=== PATIENT | male | born 1970 | race Hispanic/Latino ===

== ENCOUNTER → 2021-10-18 | Outpatient (CLI) | payer BC ==
[~2021-10-18] MED LIST: GEMFIBROZIL600 MG PO; MULTIVITAMIN1 EACH PO
== END ==
LOC: OR 06:35 → RAD 06:35 → EDSTATUS 07:30
PROVIDERS: ATTEND Internal Medicine Gastroenterology
DX: Z01.810 Encounter for preprocedural cardiovascular examination (principal); Z12.11 Encounter for screening for malignant neoplasm of colon; Z20.822 Contact with and (suspected) exposure to COVID-19; Z53.8 Procedure and treatment not carried out for other reasons
CPT/HCPCS: 93005; U0002

== ENCOUNTER → 2021-10-20 | Day surgery (SDC) | payer BC ==
[~2021-10-20] MED LIST changes: +FENTANYL CITRATE/PF 100MCG/2 ML INJ ONE; +HYOSCYAMINE SULFATE 0.5 MG/ML INJ ONE; +LIDOCAINE HCL 2% LOCAL INJ 5 ML SDV VIAL INJ ONE; +MIDAZOLAM HCL 2 MG/2 ML VIAL ONE; +PROPOFOL IV EMULSION 10 MG/ML 20 ML VIAL ONE
[2021-10-20 14:10] VITALS: BP 113/86
== END | disposition home or self-care (01) ==
LOC: OR 12:41 → RAD 12:41 → EDSTATUS 13:30 → OR 14:06
PROVIDERS: ATTEND Internal Medicine Gastroenterology
DX: Z12.11 Encounter for screening for malignant neoplasm of colon (principal); K63.5 Polyp of colon; K64.8 Other hemorrhoids; E11.9 Type 2 diabetes mellitus without complications; E78.5 Hyperlipidemia, unspecified; Z01.812 Encounter for preprocedural laboratory examination; Z20.822 Contact with and (suspected) exposure to COVID-19; Z79.899 Other long term (current) drug therapy
CPT/HCPCS: 45384; J1980; J2001; J2250; J2704; J3010; 45378